=== PATIENT | female | born 1955 | race Caucasian/White ===

== ENCOUNTER 2017-06-19 05:47 | Emergency (ER) | payer SELFPAY ==
[2017-06-19] MEDS ORDERED: Ketorolac Tromethamine 30 MG/ML VIAL ONE (06:49)
[2017-06-19] MEDS ORDERED: Cyclobenzaprine 10 MG TAB ONE (06:49)
== END 2017-06-19 07:31 | disposition home or self-care (01) ==
LOC: ERS 05:47
DX: S39.012A Strain of muscle, fascia and tendon of lower back, initial encounter (principal); F17.210 Nicotine dependence, cigarettes, uncomplicated; X50.1XXA Overexertion from prolonged static or awkward postures, initial encounter
CPT/HCPCS: 96372; 99406; J1885

== ENCOUNTER 2017-07-01 07:38 | Emergency (ER) | payer SELFPAY ==
[2017-07-01] MEDS ORDERED: Diazepam 5 MG TAB ONE (08:27)
== END 2017-07-01 08:32 | disposition home or self-care (01) ==
LOC: ERS 07:38
DX: M54.5 Low back pain (principal); F17.210 Nicotine dependence, cigarettes, uncomplicated
CPT/HCPCS: 99283

== ENCOUNTER 2020-02-26 14:47 | Outpatient (CLI) | payer MEDICARE ==
--- NOTE | 2020-02-26 15:50 | MMO ---
Bilateral MAMMO Bilat Screen [facility]. CLINICAL HISTORY: Patient is 64 years old and is seen for screening. The patient has no family history of breast cancer. The patient has no personal history of cancer. VIEWS: The views performed were: bilateral craniocaudal with tomosynthesis and bilateral mediolateral oblique with tomosynthesis. This study has been interpreted with the assistance of computer-aided detection. MAMMOGRAM FINDINGS: There are scattered fibroglandular densities. There are vascular calcifications seen in both breasts. There are no suspicious masses, suspicious calcifications, or new areas of architectural distortion. IMPRESSION: A ROUTINE FOLLOW-UP MAMMOGRAM IN 1 YEAR IS RECOMMENDED. THE RESULTS OF THIS EXAM WERE SENT TO THE PATIENT. ACR BI-RADS Category 2 - Benign finding MAMMOGRAPHY NOTE: 1. A negative mammogram report should not delay a biopsy if a dominant of clinically suspicious mass is present. 2. Approximately 10% to 15% of breast cancers are not detected by mammography. 3. Adenosis and dense breasts may obscure an underlying neoplasm. Reported by: KACI PATEL MD Electonically Signed: [id number]
--- NOTE | 2020-02-26 15:57 | BD ---
Exam: DEXA Bone Density 02/26/20 HISTORY: Postmenopausal screening for osteoporosis. Lumbar Spine: BMD (g/cm2) T-SCORE Z-SCORE L1 1.090 0.9 2.5 L2 1.152 1.1 2.9 L3 1.035 -0.4 1.5 L4 1.019 -0.4 1.6 L1-L4 1.072 0.2 2.0 Femoral Neck: 0.648 -1.8 -0.3 Total Femur: 0.644 -2.4 -1.2 Impression: Osteopenia. POS: [facility]
== END 2020-02-26 14:48 | disposition home or self-care (01) ==
LOC: BICMAMMO 14:47
PROVIDERS: ATTEND Family Medicine
DX: Z12.31 Encounter for screening mammogram for malignant neoplasm of breast (principal); Z13.820 Encounter for screening for osteoporosis; M85.80 Other specified disorders of bone density and structure, unspecified site; Z78.0 Asymptomatic menopausal state
CPT/HCPCS: 77063; 77067; 77080

== ENCOUNTER 2021-07-03 10:05 | Outpatient (CLI) | payer MEDICARE, MEDICAID | END 2021-07-03 10:06 | disposition home or self-care (01) | LOC: BICRAD 10:05 | PROVIDERS: ATTEND Nurse Practitioner Family | DX: M25.511 Pain in right shoulder (principal) ==

== ENCOUNTER 2021-10-16 08:17 | Outpatient (CLI) | payer OTHER ==
[2021-10-16 08:45] LABS: Estimated GFR-MDRD - POC Greater than 90
== END 2021-10-16 08:18 | disposition home or self-care (01) ==
LOC: CT 08:17
PROVIDERS: ATTEND Radiology Radiation Oncology
DX: C79.51 Secondary malignant neoplasm of bone (principal); C64.1 Malignant neoplasm of right kidney, except renal pelvis; M25.552 Pain in left hip
CPT/HCPCS: 74177; 78306; 82565; A9503

== ENCOUNTER 2021-11-09 07:47 | Emergency (ER) | payer OTHER ==
[2021-11-09] MEDS ORDERED: Ondansetron ODT 4 MG TAB ONE (09:06)
[2021-11-09] MEDS ORDERED: Morphine 4 MG/ML VIAL ONE (09:06)
== END 2021-11-09 09:39 | disposition home or self-care (01) ==
LOC: ERS 07:47
DX: M25.511 Pain in right shoulder (principal); R22.32 Localized swelling, mass and lump, left upper limb; F17.210 Nicotine dependence, cigarettes, uncomplicated
CPT/HCPCS: J2270; Q0162

== ENCOUNTER 2021-11-20 12:27 | Inpatient (IN) | payer OTHER, MEDICAID ==
[~2021-11-20 12:27] MED LIST: Iopamidol-370 76% 500 ML 1 ML ONE
[2021-11-20] MEDS ORDERED: Ondansetron PF 4 MG/2 ML Vial ONE ×2 (12:54→21:46)
[2021-11-20] MEDS ORDERED: Benzocaine 20% Spray 60 ML CAN ONE (13:05)
[2021-11-20 13:07] LABS: #Lymphocytes 0.4 thou/uL (1.20-3.40); #Monocytes 0.4 thou/uL (0.11-0.59); #Neutrophils 5.5 thou/uL (1.40-6.50); %Eosinophils 0.5 % (0.0-10.0); %Lymphocytes 6.6 % (21.0-51.0); %Monocytes 5.6 % (0.0-10.0); %Neutrophils 87.3 % (42.0-75.0); Hemoglobin 9.1 g/dL (12.0-16.0); Mean Corpuscular HGB CONC 30.7 g/dL (32.0-36.0); Mean Corpuscular Hemoglobin 27.3 pg (27.0-31.0); Mean Corpuscular Volume 89.1 fL (78.0-98.0); Mean Platelet Volume 8.7 fL (7.4-10.4); Platelet Count 237 thou/uL (130-400); RBC Distribution Width 15.7 % (11.5-14.5); Red Blood Cell (RBC) Count 3.32 mill/uL (4.20-5.40); White Blood Cell (WBC) Count 6.3 thou/uL (4.8-10.8)
[2021-11-20 13:28] LABS: INR-International Normal Ratio 1.1; Prothrombin Time 14.5 sec (12.0-14.7)
[2021-11-20 13:29] LABS: PTT 29.6 sec (22.9-36.1)
[2021-11-20 13:36] LABS: ALT (SGPT) Less than 7 U/L (8-55); AST (SGOT) 10 U/L (5-34); Albumin 2.6 g/dL (3.4-4.8); Alkaline Phosphatase 96 U/L (40-110); BUN (Urea Nitrogen) 11 mg/dL (9.8-20.1); Bilirubin, Total 0.4 mg/dL (0.2-1.2); Calc. Creatinine Clearance 0 mL/min (70-130); Calcium 9.1 mg/dL (7.8-10.44); Globulin 3.1 g/dL (2.4-3.5); Glucose 154 mg/dL (80-115); Lipase 11 U/L (8-78); Protein, Total 5.7 g/dL (5.8-8.1)
[2021-11-20 13:43] LABS: D-Dimer Test 4.49 *mcg/mL (0.27-0.43)
[2021-11-20] MEDS ORDERED: Pantoprazole 40 MG VIAL ONE (13:45)
[2021-11-20 13:46] LABS: Anion Gap 17 mmol/L (10-20); Carbon Dioxide 33 mmol/L (23-31); Chloride 96 mmol/L (98-107); Sodium 144 mmol/L (136-145)
[2021-11-20 13:48] LABS: Potassium 2.4 mmol/L (3.5-5.1)
[2021-11-20] MEDS ORDERED: Potassium Chloride 40 MEQ in Sodium Chloride 0.9% 250 ML 250 ML IVPB SCH (15:00)
[2021-11-20] MEDS ORDERED: Ondansetron ODT 4 MG TAB PO PRN (16:03)
[2021-11-20] MEDS ORDERED: Acetaminophen 325 MG TAB PO PRN (16:03)
[2021-11-20] MEDS ORDERED: Ondansetron PF 4 MG/2 ML Vial IVP PRN (16:03)
[2021-11-20 16:46] LABS: Magnesium 1.6 mg/dL (1.6-2.6)
[2021-11-20] MEDS ORDERED: fentaNYL Citrate/PF 100 MCG/2 ML SYRINGE ONE (21:02)
[2021-11-20] MEDS ORDERED: PROPOFOL 200 MG/20 ML VIAL ONE (21:46)
[2021-11-20] MEDS ORDERED: EPINEPHrine 1 MG/10 ML Abboject SYRINGE ONE ×2 (21:46→22:24)
[2021-11-20] MEDS ORDERED: Succinylcholine 200 MG/10 ml SYRINGE FS ONE (21:46)
[2021-11-20] MEDS ORDERED: PHENYLEPHRINE-NS 100 MCG/ML 10 ML SYRINGE ONE ×2 (21:46→22:27)
[2021-11-20] MEDS ORDERED: Rocuronium Bromide 10 MG/ML (10ML VIAL) ONE (21:46)
[2021-11-20] MEDS ORDERED: Propofol 1,000 MG/100 ML VIAL IV ONE (22:24)
[2021-11-20] MEDS ORDERED: Phenylephrine 10 MG/ML VIAL ONE (22:26)
[2021-11-20] MEDS ORDERED: Piperacillin/Tazobactam 3.375 GM in Sodium Chloride 0.9% 100 ML IVPB SCH (23:00)
[2021-11-20 23:53] VITALS: BMI 23.3
[2021-11-20 23:53] LABS: Actual Bicarbonate (HCO3a) 29.4 mEq/L (22-28); Base Excess (BEa) 5.3 mEq/L (-2.0 to +3.0); CO2 Tension 40.8 mmHg (35.0-45.0); Hemoglobin (Hb) 10.1 g/dL (12.0-16.0); O2 Tension (PaO2), arterial 88.8 mmHg (> 80.0); pH, Arterial 7.48 (7.35-7.45)
[2021-11-20 23:54] LABS: Calcium, Ionized (arterial) 1.06 mmol/L (1.12-1.30); Carboxyhemoglobin (COHb) 2.2 gm% (0.0-3.0); Potassium - ABG Lab 2.53 mmol/L (3.70-5.30); Puncture Site RRA
[2021-11-21 00:30] LABS: Hemoglobin 9.7 g/dL (12.0-16.0); Mean Corpuscular HGB CONC 30.3 g/dL (32.0-36.0); Mean Corpuscular Hemoglobin 27.5 pg (27.0-31.0); Mean Corpuscular Volume 90.7 fL (78.0-98.0); Mean Platelet Volume 8.6 fL (7.4-10.4); Platelet Count 179 thou/uL (130-400); RBC Distribution Width 15.5 % (11.5-14.5); Red Blood Cell (RBC) Count 3.55 mill/uL (4.20-5.40); White Blood Cell (WBC) Count 2.1 thou/uL (4.8-10.8)
[2021-11-21 00:42] LABS: Anion Gap 16 mmol/L (10-20); BUN (Urea Nitrogen) 19 mg/dL (9.8-20.1); Calc. Creatinine Clearance 93 mL/min (70-130); Calcium 7.8 mg/dL (7.8-10.44); Carbon Dioxide 30 mmol/L (23-31); Chloride 102 mmol/L (98-107); Glucose 107 mg/dL (80-115); Sodium 145 mmol/L (136-145)
[2021-11-21 00:45] LABS: Potassium 2.6 mmol/L (3.5-5.1)
[2021-11-21] MEDS ORDERED: Electrolyte Replacement Protocol 1 EACH FS SCH (00:57)
[2021-11-21] MEDS ORDERED: Ventilator Sedation Protocol 1 EACH FS ONE (00:59)
[2021-11-21 01:00] LABS: MDiff Complete? YES
[2021-11-21 01:01] LABS: Anisocytosis SLIGHT = 6-15 cells (100X) (0-5/hpf); Band 78 % (5-11); Elliptocytes SLIGHT = 2-5 cells (100X) (0-1/hpf); Hypochromia SLIGHT = 6-15 cells (100X) (0-5/hpf); Lymphocytes 6 % (21-51); Monocytes 1 % (0-10); Neutrophil 15 % (42-75); Platelet Morphology Comment Appears Adequate; Polychromasia SLIGHT = 2-3 cells (100X) (0-2/hpf); Reflex for Review?? YES
[2021-11-21] MEDS ORDERED: DISCONTINUE PREVIOUS NARCOTIC PAIN MEDICATIONS AND BENZODIAZEPINES FS SCH (01:15)
[2021-11-21] MEDS ORDERED: fentaNYL Citrate-0.9 % NaCl/PF 100 ML IV SCH (01:15)
[2021-11-21] MEDS ORDERED: Lorazepam 2 MG/ML VIAL SLOW IVP PRN (01:15)
[2021-11-21] MEDS ORDERED: Morphine 2 MG/ML VIAL SLOW IVP PRN (01:15)
[2021-11-21] MEDS ORDERED: Fentanyl BOLUS 250 ML IVPB PRN (01:15)
[2021-11-21] MEDS ORDERED: Propofol BOLUS 1,000 MG/100 ML VIAL IV PRN (01:15)
[2021-11-21] MEDS: Lactated Ringer's 1,000 ML IV SCH ×2 (02:09→12:16)
[2021-11-21] MEDS: Potassium Chloride 20 MEQ in Premix Bag 1 BAG IVPB SCH ×4 (02:09→08:58)
[2021-11-21] MEDS: Propofol 1,000 MG/100 ML VIAL IV PRN ×2 (02:13→04:28)
[2021-11-21 04:07] LABS: ALT (SGPT) Less than 7 U/L (8-55); AST (SGOT) 6 U/L (5-34); Albumin 2.1 g/dL (3.4-4.8); Alkaline Phosphatase 65 U/L (40-110); Anion Gap 14 mmol/L (10-20); BUN (Urea Nitrogen) 24 mg/dL (9.8-20.1); Bilirubin, Total 0.7 mg/dL (0.2-1.2); Calc. Creatinine Clearance 85 mL/min (70-130); Calcium 7.7 mg/dL (7.8-10.44); Carbon Dioxide 30 mmol/L (23-31); Chloride 103 mmol/L (98-107); Globulin 2.5 g/dL (2.4-3.5); Glucose 90 mg/dL (80-115); Protein, Total 4.6 g/dL (5.8-8.1); Sodium 144 mmol/L (136-145)
[2021-11-21 04:12] LABS: Potassium 2.8 mmol/L (3.5-5.1)
[2021-11-21 04:19] LABS: Band 88 % (5-11); Hemoglobin 10.1 g/dL (12.0-16.0); Lymphocytes 2 % (21-51); MDiff Complete? YES; Mean Corpuscular HGB CONC 32.4 g/dL (32.0-36.0); Mean Corpuscular Hemoglobin 28.9 pg (27.0-31.0); Mean Corpuscular Volume 89.4 fL (78.0-98.0); Mean Platelet Volume 8.9 fL (7.4-10.4); Metamyelocyte 2 % (0-0); Myelocyte 2 % (0-0); Neutrophil 6 % (42-75); Platelet Count 184 thou/uL (130-400); Platelet Morphology Comment Appears Adequate; RBC Distribution Width 15.4 % (11.5-14.5); RBC Morphology Normal; Red Blood Cell (RBC) Count 3.49 mill/uL (4.20-5.40); White Blood Cell (WBC) Count 6.3 thou/uL (4.8-10.8)
[2021-11-21] MEDS: Piperacillin/Tazobactam 3.375 GM in Sodium Chloride 0.9% 100 ML IVPB SCH ×3 (04:21→19:59)
[2021-11-21] MEDS: Pantoprazole 80 MG in Sodium Chloride 0.9% 100 ML IVPB SCH (06:27)
[2021-11-21] MEDS ORDERED: Magnesium 2 GM/50 ML(in water) 2 GM in Premix Bag 1 BAG IVPB SCH (10:00)
[2021-11-21 11:43] LABS: Hemoglobin 10.1 g/dL (12.0-16.0)
[2021-11-21 12:03] LABS: ALT (SGPT) Less than 7 U/L (8-55); AST (SGOT) 9 U/L (5-34); Albumin 2.2 g/dL (3.4-4.8); Alkaline Phosphatase 64 U/L (40-110); Anion Gap 14 mmol/L (10-20); BUN (Urea Nitrogen) 26 mg/dL (9.8-20.1); Bilirubin, Total 0.7 mg/dL (0.2-1.2); Calc. Creatinine Clearance 83 mL/min (70-130); Calcium 7.5 mg/dL (7.8-10.44); Carbon Dioxide 28 mmol/L (23-31); Chloride 107 mmol/L (98-107); Globulin 2.7 g/dL (2.4-3.5); Glucose 100 mg/dL (80-115); Potassium 3.8 mmol/L (3.5-5.1); Protein, Total 4.9 g/dL (5.8-8.1); Sodium 145 mmol/L (136-145)
[2021-11-21 17:56] LABS: Hemoglobin 9.2 g/dL (12.0-16.0)
[2021-11-21 21:41] LABS: SARS-CoV-2 NAA Rapid Test Not Detected (NotDetected)
[2021-11-22] MEDS: Lactated Ringer's 1,000 ML IV SCH (00:41)
[2021-11-22] MEDS: Pantoprazole 80 MG in Sodium Chloride 0.9% 100 ML IVPB SCH ×2 (01:59→12:05)
[2021-11-22] MEDS: Piperacillin/Tazobactam 3.375 GM in Sodium Chloride 0.9% 100 ML IVPB SCH ×3 (04:17→21:16)
[2021-11-22 04:27] LABS: ALT (SGPT) Less than 7 U/L (8-55); AST (SGOT) 7 U/L (5-34); Alkaline Phosphatase 60 U/L (40-110); Anion Gap 9 mmol/L (10-20); BUN (Urea Nitrogen) 16 mg/dL (9.8-20.1); Bilirubin, Total 0.4 mg/dL (0.2-1.2); Calc. Creatinine Clearance 110 mL/min (70-130); Calcium 7.3 mg/dL (7.8-10.44); Carbon Dioxide 30 mmol/L (23-31); Chloride 102 mmol/L (98-107); Globulin 2.3 g/dL (2.4-3.5); Glucose 131 mg/dL (80-115); Protein, Total 4.3 g/dL (5.8-8.1); Sodium 138 mmol/L (136-145)
[2021-11-22 04:31] LABS: Potassium 2.8 mmol/L (3.5-5.1)
[2021-11-22] MEDS: Potassium Chloride 20 MEQ TAB PO SCH ×2 (04:43→08:42)
[2021-11-22 04:48] LABS: Band 43 % (5-11); Hemoglobin 7.9 g/dL (12.0-16.0); Hypochromia SLIGHT = 6-15 cells (100X) (0-5/hpf); Lymphocytes 1 % (21-51); MDiff Complete? YES; Mean Corpuscular HGB CONC 31.3 g/dL (32.0-36.0); Mean Corpuscular Hemoglobin 28.6 pg (27.0-31.0); Mean Corpuscular Volume 91.2 fL (78.0-98.0); Mean Platelet Volume 8.9 fL (7.4-10.4); Neutrophil 56 % (42-75); Platelet Count 153 thou/uL (130-400); Platelet Morphology Comment Appears Adequate; RBC Distribution Width 15.7 % (11.5-14.5); Red Blood Cell (RBC) Count 2.77 mill/uL (4.20-5.40); White Blood Cell (WBC) Count 8.2 thou/uL (4.8-10.8)
[2021-11-22 07:28] LABS: Magnesium 1.9 mg/dL (1.6-2.6)
[2021-11-22] MEDS ORDERED: Magnesium 2 GM/50 ML(in water) 2 GM in Premix Bag 1 BAG IVPB SCH (09:00)
[2021-11-22 12:50] LABS: Hemoglobin 8.1 g/dL (12.0-16.0)
[2021-11-22 13:12] LABS: Anion Gap 10 mmol/L (10-20); BUN (Urea Nitrogen) 12 mg/dL (9.8-20.1); Calc. Creatinine Clearance 0 mL/min (70-130); Calcium 7.7 mg/dL (7.8-10.44); Carbon Dioxide 29 mmol/L (23-31); Chloride 100 mmol/L (98-107); Glucose 132 mg/dL (80-115); Potassium 3.3 mmol/L (3.5-5.1); Sodium 136 mmol/L (136-145)
[2021-11-22] MEDS: Potassium Chloride 20 MEQ in Premix Bag 1 BAG IVPB SCH ×2 (17:11→21:16)
[2021-11-22] MEDS: Pantoprazole 40 MG VIAL IVP SCH (21:17)
[2021-11-23] MEDS ORDERED: Lorazepam 2 MG/ML VIAL SLOW IVP SCH (00:45)
[2021-11-23] MEDS: Piperacillin/Tazobactam 3.375 GM in Sodium Chloride 0.9% 100 ML IVPB SCH (05:03)
[2021-11-23 06:20] LABS: ALT (SGPT) Less than 7 U/L (8-55); AST (SGOT) 9 U/L (5-34); Albumin 2.1 g/dL (3.4-4.8); Alkaline Phosphatase 65 U/L (40-110); Anion Gap 9 mmol/L (10-20); BUN (Urea Nitrogen) 8 mg/dL (9.8-20.1); Bilirubin, Total 0.4 mg/dL (0.2-1.2); Calc. Creatinine Clearance 0 mL/min (70-130); Calcium 7.7 mg/dL (7.8-10.44); Carbon Dioxide 29 mmol/L (23-31); Chloride 106 mmol/L (98-107); Globulin 2.7 g/dL (2.4-3.5); Glucose 112 mg/dL (80-115); Potassium 4.2 mmol/L (3.5-5.1); Protein, Total 4.8 g/dL (5.8-8.1); Sodium 140 mmol/L (136-145)
[2021-11-23 06:24] LABS: Band 28 % (5-11); Hemoglobin 7.7 g/dL (12.0-16.0); Hypochromia SLIGHT = 6-15 cells (100X) (0-5/hpf); Lymphocytes 1 % (21-51); MDiff Complete? YES; Mean Corpuscular HGB CONC 31.8 g/dL (32.0-36.0); Mean Corpuscular Hemoglobin 28.2 pg (27.0-31.0); Mean Corpuscular Volume 88.7 fL (78.0-98.0); Monocytes 3 % (0-10); Neutrophil 68 % (42-75); Platelet Count 162 thou/uL (130-400); Platelet Morphology Comment Appears Adequate; RBC Distribution Width 16.2 % (11.5-14.5); Red Blood Cell (RBC) Count 2.74 mill/uL (4.20-5.40); White Blood Cell (WBC) Count 7.1 thou/uL (4.8-10.8)
[2021-11-23] MEDS: Pantoprazole 40 MG VIAL IVP SCH ×2 (09:13→20:47)
[2021-11-23] MEDS ORDERED: Furosemide 20 MG/2 ML VIAL SLOW IVP SCH (13:15)
[2021-11-23] MEDS ORDERED: Melatonin 3 MG TAB PO PRN (18:47)
[2021-11-24 05:55] LABS: Hemoglobin 8.2 g/dL (12.0-16.0); Mean Corpuscular HGB CONC 32.1 g/dL (32.0-36.0); Mean Corpuscular Hemoglobin 28.4 pg (27.0-31.0); Mean Corpuscular Volume 88.5 fL (78.0-98.0); Mean Platelet Volume 8.9 fL (7.4-10.4); Platelet Count 172 thou/uL (130-400); RBC Distribution Width 16.2 % (11.5-14.5); Red Blood Cell (RBC) Count 2.87 mill/uL (4.20-5.40); White Blood Cell (WBC) Count 8.1 thou/uL (4.8-10.8)
[2021-11-24 06:13] LABS: ALT (SGPT) 7 U/L (8-55); AST (SGOT) 10 U/L (5-34); Albumin 2.3 g/dL (3.4-4.8); Alkaline Phosphatase 71 U/L (40-110); Anion Gap 10 mmol/L (10-20); BUN (Urea Nitrogen) 5 mg/dL (9.8-20.1); Bilirubin, Total 0.4 mg/dL (0.2-1.2); Calc. Creatinine Clearance 0 mL/min (70-130); Calcium 7.9 mg/dL (7.8-10.44); Carbon Dioxide 27 mmol/L (23-31); Chloride 104 mmol/L (98-107); Globulin 2.7 g/dL (2.4-3.5); Glucose 97 mg/dL (80-115); Potassium 3.6 mmol/L (3.5-5.1); Sodium 137 mmol/L (136-145)
[2021-11-24 06:54] LABS: Band 26 % (5-11); Lymphocytes 5 % (21-51); MDiff Complete? YES; Monocytes 4 % (0-10); Neutrophil 65 % (42-75)
[2021-11-24] MEDS: Pantoprazole 40 MG VIAL IVP SCH (08:26)
[2021-11-24 08:31] VITALS: BP 108/67; TEMP 98.9
== END 2021-11-24 12:15 | disposition home or self-care (01) | DRG 377 ==
LOC: ERS 12:27 → SDC/OP 22:27 → CCU 23:29 → MSONC 11-22 14:40
PROVIDERS: ADMIT Student in an Organized Health Care Education/Training Program; ATTEND Student in an Organized Health Care Education/Training Program
PROC: 30233N1 Transfusion of Nonautologous Red Blood Cells into Peripheral Vein, Percutaneous Approach (ICD-10-PCS; principal; 2021-11-20)
PROC: 0W3P8ZZ Control Bleeding in Gastrointestinal Tract, Via Natural or Artificial Opening Endoscopic (ICD-10-PCS; 2021-11-20)
PROC: 0D9770Z Drainage of Stomach, Pylorus with Drainage Device, Via Natural or Artificial Opening (ICD-10-PCS; 2021-11-20)
DX: K25.6 Chronic or unspecified gastric ulcer with both hemorrhage and perforation (principal); J96.00 Acute respiratory failure, unspecified whether with hypoxia or hypercapnia; C64.9 Malignant neoplasm of unspecified kidney, except renal pelvis; C79.51 Secondary malignant neoplasm of bone; D62 Acute posthemorrhagic anemia; J90 Pleural effusion, not elsewhere classified; Z20.822 Contact with and (suspected) exposure to COVID-19; Z66 Do not resuscitate; Z23 Encounter for immunization; M41.9 Scoliosis, unspecified; Z96.642 Presence of left artificial hip joint; F17.210 Nicotine dependence, cigarettes, uncomplicated; E87.6 Hypokalemia; K44.9 Diaphragmatic hernia without obstruction or gangrene; J44.9 Chronic obstructive pulmonary disease, unspecified; E86.9 Volume depletion, unspecified; Z79.899 Other long term (current) drug therapy; Z98.51 Tubal ligation status; Z28.311 Partially vaccinated for COVID-19
CPT/HCPCS: 36415; 36430; 36600; 71045; 74022; 74176; 74177; 80053; 82274; 82805; 83690; 83735; 85025; 85060; 85379; 85610; 85730; 86850; 86900; 86901; 93005; 94002; 94003; 94640; 96361; 96365; 96366; 96375; 96376; C9113; J0171; J1940; J2060; J2370; J2405; J2543; J2704; J3475; J3480; J3490; J7050; J7120; J7620; P9016; Q9967; U0002

== ENCOUNTER 2021-12-02 01:53 | Inpatient (IN) | payer MEDICARE, MEDICAID ==
[2021-12-02] MEDS ORDERED: Ondansetron PF 4 MG/2 ML Vial ONE (02:10)
[2021-12-02] MEDS ORDERED: Fentanyl 100 MCG/2 ML VIAL ONE (02:10)
[2021-12-02 02:21] LABS: Hemoglobin 7.8 g/dL (12.0-16.0); Mean Corpuscular HGB CONC 31.4 g/dL (32.0-36.0); Mean Corpuscular Hemoglobin 28.8 pg (27.0-31.0); Mean Corpuscular Volume 91.6 fL (78.0-98.0); Platelet Count 290 thou/uL (130-400); RBC Distribution Width 17.1 % (11.5-14.5); White Blood Cell (WBC) Count 5.8 thou/uL (4.8-10.8)
[2021-12-02 02:27] LABS: INR-International Normal Ratio 1.2; PTT 28.5 sec (22.9-36.1); Prothrombin Time 15.8 sec (12.0-14.7)
[2021-12-02 02:32] LABS: ALT (SGPT) 7 U/L (8-55); AST (SGOT) 13 U/L (5-34); Albumin 1.8 g/dL (3.4-4.8); Alkaline Phosphatase 62 U/L (40-110); Anion Gap 22 mmol/L (10-20); BUN (Urea Nitrogen) 9 mg/dL (9.8-20.1); Bilirubin, Total 0.5 mg/dL (0.2-1.2); Calc. Creatinine Clearance 0 mL/min (70-130); Calcium 7.2 mg/dL (7.8-10.44); Carbon Dioxide 26 mmol/L (23-31); Chloride 99 mmol/L (98-107); Globulin 2.4 g/dL (2.4-3.5); Glucose 141 mg/dL (80-115); Protein, Total 4.2 g/dL (5.8-8.1); Sodium 144 mmol/L (136-145)
[2021-12-02 02:37] LABS: Potassium 2.6 mmol/L (3.5-5.1)
[2021-12-02 02:57] LABS: Anisocytosis SLIGHT = 6-15 cells (100X) (0-5/hpf); Band 26 % (5-11); Hypochromia SLIGHT = 6-15 cells (100X) (0-5/hpf); Lymphocytes 22 % (21-51); MDiff Complete? YES; Metamyelocyte 8 % (0-0); Monocytes 6 % (0-10); Myelocyte 4 % (0-0); Neutrophil 34 % (42-75); Nucleated RBC 3 % (0); Platelet Morphology Comment Appears Adequate; Polychromasia SLIGHT = 2-3 cells (100X) (0-2/hpf)
[2021-12-02] MEDS ORDERED: Pantoprazole 40 MG VIAL ONE (02:57)
[2021-12-02] MEDS ORDERED: Pantoprazole 80 MG in Sodium Chloride 0.9% 100 ML IVPB SCH (03:00)
[2021-12-02 03:43] LABS: SARS-CoV-2 NAA Rapid Test Not Detected (NotDetected)
[2021-12-02] MEDS ORDERED: Ondansetron PF 4 MG/2 ML Vial IVP PRN (03:49)
[2021-12-02] MEDS ORDERED: Acetaminophen 325 MG TAB PO PRN (03:49)
[2021-12-02] MEDS ORDERED: Electrolyte Replacement Protocol 1 EACH IVPB ONE (03:53)
[2021-12-02] MEDS ORDERED: Nicotine 21 MG PATCH TD SCH (04:00)
[2021-12-02] MEDS ORDERED: Electrolyte Replacement Protocol FS PRN (04:00)
[2021-12-02] MEDS ORDERED: Pantoprazole 80 MG in Sodium Chloride 0.9% 100 ML IVP SCH (04:00)
[2021-12-02] MEDS ORDERED: Sodium Chloride 0.9% 1,000 ML IV SCH (04:15)
[2021-12-02] MEDS ORDERED: Potassium Chloride 20 MEQ in Premix Bag 1 BAG IVPB SCH (04:15)
[2021-12-02 04:23] VITALS: BMI 21.9
[2021-12-02] MEDS ORDERED: Morphine 2 MG/ML VIAL SLOW IVP PRN (04:34)
[2021-12-02] MEDS: Potassium Chloride 40 MEQ in Sodium Chloride 0.9% 250 ML 250 ML IVPB SCH ×2 (05:19→10:34)
[2021-12-02] MEDS ORDERED: Lactated Ringer's 1,000 ML IV SCH ×4 (05:45→09:15)
[2021-12-02 05:46] LABS: Lactic Acid 7.3 mmol/L (0.5-2.2)
[2021-12-02] MEDS ORDERED: Fentanyl 100 MCG/2 ML VIAL SLOW IVP SCH (07:00)
[2021-12-02 07:18] LABS: Hemoglobin 13.1 g/dL (12.0-16.0); Mean Corpuscular HGB CONC 32.5 g/dL (32.0-36.0); Mean Corpuscular Hemoglobin 29.3 pg (27.0-31.0); Mean Corpuscular Volume 90.2 fL (78.0-98.0); Platelet Count 198 thou/uL (130-400); RBC Distribution Width 16.3 % (11.5-14.5); Red Blood Cell (RBC) Count 4.46 mill/uL (4.20-5.40)
[2021-12-02 07:42] LABS: Anisocytosis SLIGHT = 6-15 cells (100X) (0-5/hpf); Band 23 % (5-11); Burr Cells SLIGHT = 2-5 cells (100X) (0-1/hpf); Lymphocytes 7 % (21-51); MDiff Complete? YES; Metamyelocyte 2 % (0-0); Monocytes 11 % (0-10); Myelocyte 4 % (0-0); Neutrophil 53 % (42-75); Platelet Morphology Comment Appears Adequate; Polychromasia SLIGHT = 2-3 cells (100X) (0-2/hpf); White Blood Cell (WBC) Count 5.1 thou/uL (4.8-10.8)
[2021-12-02] MEDS ORDERED: Fentanyl 100 MCG/2 ML VIAL SLOW IVP PRN (09:53)
[2021-12-02] MEDS ORDERED: Morphine 4 MG/ML VIAL SLOW IVP PRN (10:41)
[2021-12-02] MEDS ORDERED: Lorazepam 2 MG/ML VIAL SLOW IVP PRN (11:02)
[2021-12-02] MEDS ORDERED: Glycopyrrolate 0.2 MG/ML 5 ML SYRINGE SLOW IVP PRN (11:07)
[2021-12-02] MEDS ORDERED: Iopamidol-370 76% 500 ML 1 ML ONE (11:21)
[2021-12-02 12:05] VITALS: TEMP 98.1
== END 2021-12-02 13:26 | disposition expired | DRG 393 ==
LOC: ERS 01:53 → CCU 03:05
PROVIDERS: ADMIT Student in an Organized Health Care Education/Training Program; ATTEND Student in an Organized Health Care Education/Training Program
PROC: 30233N1 Transfusion of Nonautologous Red Blood Cells into Peripheral Vein, Percutaneous Approach (ICD-10-PCS; principal; 2021-12-02)
DX: K55.8 Other vascular disorders of intestine (principal); Z66 Do not resuscitate; Z51.5 Encounter for palliative care; Z20.822 Contact with and (suspected) exposure to COVID-19; K63.1 Perforation of intestine (nontraumatic); D62 Acute posthemorrhagic anemia; E87.2 Acidosis; C64.9 Malignant neoplasm of unspecified kidney, except renal pelvis; K92.1 Melena; F17.210 Nicotine dependence, cigarettes, uncomplicated; R57.1 Hypovolemic shock; E87.6 Hypokalemia; R57.8 Other shock; J44.9 Chronic obstructive pulmonary disease, unspecified; K21.9 Gastro-esophageal reflux disease without esophagitis; G89.29 Other chronic pain; M54.9 Dorsalgia, unspecified; M41.9 Scoliosis, unspecified; Z96.642 Presence of left artificial hip joint; Z79.899 Other long term (current) drug therapy; Z98.51 Tubal ligation status; Z28.310 Unvaccinated for COVID-19
CPT/HCPCS: 36415; 36416; 36430; 74177; 80053; 83605; 84484; 85025; 85610; 85730; 86850; 86900; 86901; 93005; C9113; J2270; J2405; J3010; J3480; J3490; J7050; J7120; P9016; Q9967; U0002